=== PATIENT | female | born 1970 | race Caucasian/White ===

== ENCOUNTER 2020-11-11 16:10 | Emergency (ER) | payer BC ==
[2020-11-11 16:18] VITALS: TEMP 98.5
[2020-11-11] MEDS ORDERED: SODIUM CHLORIDE 0.9% 500 ML 500 ML IV STA (17:11)
[2020-11-11 17:32] LABS: Anisocytosis Slight; Basophils % (A) 1 %; Eosinophils # (A) 0.1 k/uL (0-0.7); Eosinophils % (A) 2 %; HCT 30.3 % (34.0-46.0); HGB 8.9 gm/dL (11.4-16.0); Hypochromasia Marked; Lymphocytes % (A) 24 %; MCH 19.6 pg (25.0-35.0); MCHC 29.4 g/dL (31.0-37.0); MCV 66.6 fL (80.0-100.0); Mean Platelet Volume 6.8; Microcytosis Marked; Monocytes # (A) 0.3 k/uL (0-1.0); Monocytes % (A) 8 %; Neutrophils # (A) 2.6 k/uL (1.3-7.7); Neutrophils % (A) 62 %; Platelet Count 207 k/uL (150-450); Poikilocytosis Slight; RBC 4.55 m/uL (3.80-5.40); WBC 4.2 k/uL (3.8-10.6)
[2020-11-11 17:43] LABS: ALT 13 U/L (4-34); AST 21 U/L (14-36); African American GFR (CKD) >90 (>60 ml/min/1.73 sqM); Alkaline Phosphatase 61 U/L (38-126); Anion Gap 6 mmol/L; Blood Urea Nitrogen 9 mg/dL (7-17); Carbon Dioxide 24 mmol/L (22-30); Chloride 107 mmol/L (98-107); Glucose 76 mg/dL (74-99); Non-African American GFR(CKD) >90 (>60 ml/min/1.73 sqM); Potassium 4.2 mmol/L (3.5-5.1); Sodium 137 mmol/L (137-145); Total Bilirubin 0.2 mg/dL (0.2-1.3); Total Protein 6.7 g/dL (6.3-8.2)
[2020-11-11 17:57] LABS: Partial Thromboplastin Time 21.6 sec (22.0-30.0); Prothrombin Time 10.8 sec (9.0-12.0)
--- NOTE | 2020-11-11 17:58 | ED ---
Recheck HPI - General Chief Complaint: Recheck/Abnormal Lab/Rx Stated Complaint: Sent by pcp Time Seen by Provider: 11/11/20 16:54 Source: patient Mode of arrival: ambulatory Limitations: no limitations - History of Present Illness Initial Comments: Patient is a 50-year-old female, with history of anemia, presenting to the emergency department from her PCPs office for possibly low hemoglobin. Patient states over the last few weeks she has been having her hemoglobin level checked by her PCP, they state has been dropping a little bit each time and she continues to feel worse so PCP decided to send her into the ER. Hemoglobin was 8.22 weeks ago, then rechecked last week it was 7.9. Pt just started ferrous 4 days ago. Patient is complaining of shortness of breath with exertion, fatigue, leg cramps. She states she does take an iron supplement. She denies any blood thinners, she denies any bleeding since his hematochezia, hematuria. He denies any nausea or vomiting. She states she has been borderline anemic for most of her life. She does admit to gastric bypass surgery, no other abdominal surgeries. She denies any chest pain or shortness of breath at rest, no fever or chills. She denies any abdominal pain. Patient has no further complaints at this time. Upon arrival to the ER, her vitals are stable. - Related Data Home Medications Medication Instructions Recorded Confirmed Cholecalciferol [Vitamin D3 (25 25 mcg PO DAILY 11/11/20 11/11/20 Mcg = 1000 Iu)] FLUoxetine HCL [PROzac] 20 mg PO DAILY 11/11/20 11/11/20 Ferrous Sulfate [Feosol] 325 mg PO DAILY 11/11/20 11/11/20 Lansoprazole [Prevacid] 30 mg PO DAILY 11/11/20 11/11/20 Multivitamins, Thera [Multivitamin 1 tab PO DAILY 11/11/20 11/11/20 (formulary)] Allergies Allergy/AdvReac Type Severity Reaction Status Date / Time Penicillins Allergy Rash/Hives Verified 11/11/20 18:07 Review of Systems ROS Statement: Those systems with pertinent positive or pertinent negative responses have been documented in the HPI. ROS Other: All systems not noted in ROS Statement are negative. Past Medical History Additional Past Medical History / Comment(s): Anemia History of Any Multi-Drug Resistant Organisms: None Reported Past Surgical History: Adenoidectomy, Ear Surgery Additional Past Surgical History / Comment(s): D& C, Gastric sleeve Past Psychological History: No Psychological Hx Reported Smoking Status: Never smoker Past Alcohol Use History: Occasional Past Drug Use History: None Reported General Exam - General Exam Comments Initial Comments: GENERAL: Patient is well-developed and well-nourished. Patient is nontoxic and in no acute distress. HEAD: Atraumatic, normocephalic. EYES: Pupils equal round and reactive to light, extraocular movements intact, sclera anicteric, conjunctiva are normal. Eyelids were unremarkable. ENT: TMs normal, nares patent, oropharynx clear without exudates. Moist mucous membranes. NECK: Normal range of motion, supple without lymphadenopathy or JVD. LUNGS: Unlabored respirations. Breath sounds clear to auscultation bilaterally and equal. No wheezes rales or rhonchi. HEART: Regular rate and rhythm without murmurs, rubs or gallops. ABDOMEN: Soft, nontender, normoactive bowel sounds. No guarding, no rebound. No masses appreciated. : Deferred MUSCULOSKELETAL: Normal extremities with adequate strength and normal range of motion, no pitting or edema. No clubbing or cyanosis. NEUROLOGICAL: Patient is alert and oriented x 3. Motor and sensory are also intact. Cranial nerves II through XII grossly intact. Symmetrical smile. Normal speech, normal gait. PSYCH: Normal mood, normal affect. SKIN: Warm, Dry, normal turgor, no rashes or lesions noted. Limitations: no limitations Course Vital Signs 11/11/20 11/11/20 16:15 18:02 Temperature 98.5 F Pulse Rate 80 76 Respiratory 20 16 Rate Blood Pressure 114/58 102/79 O2 Sat by Pulse 99 Oximetry Medical Decision Making - Medical Decision Making Patient is a 50-year-old female with history anemia, presenting from her PCPs office for possibly low hemoglobin. They have been checking her hemoglobin level over the past few weeks and has been dropping slightly. She denies any bleeding. She is complaining of fatigue, shortness of breath with exertion, leg cramping. Her exam is unremarkable, no acute findings. Her vital signs are stable. Last hemoglobins were 8.2 and then 7.9 last week. Today is 8.9. Rest of the labs are stable including normal troponin. Chest x-ray and EKG are also normal. Discussed these findings with the patient. I did recommend following up with a ortho nurse, she does have an appointment with one next week. I recommend she continue with her prescribed medications, follow up with her PCP. Patient is stable for discharge. Patient is in agreement with this plan of care. Return parameters were discussed with the patient and they verbalized understanding. Case discussed with Dr. Dyer. - Lab Data Result diagrams: 11/11/20 17:21 11/11/20 17:21 Lab Results 11/11/20 11/11/20 11/11/20 Range/Units 17:04 17:21 17:21 WBC 4.2 (3.8-10.6) k/uL RBC 4.55 (3.80-5.40) m/uL Hgb 8.9 L (11.4-16.0) gm/dL Hct 30.3 L (34.0-46.0) % MCV 66.6 L (80.0-100.0) fL MCH 19.6 L (25.0-35.0) pg MCHC 29.4 L (31.0-37.0) g/dL RDW 19.0 H (11.5-15.5) % Plt Count 207 (150-450) k/uL MPV 6.8 Neutrophils % 62 % Lymphocytes % 24 % Monocytes % 8 % Eosinophils % 2 % Basophils % 1 % Neutrophils # 2.6 (1.3-7.7) k/uL Lymphocytes # 1.0 (1.0-4.8) k/uL Monocytes # 0.3 (0-1.0) k/uL Eosinophils # 0.1 (0-0.7) k/uL Basophils # 0.0 (0-0.2) k/uL Hypochromasia Marked Poikilocytosis Slight Anisocytosis Slight Microcytosis Marked PT 10.8 (9.0-12.0) sec INR 1.0 (<1.2) APTT 21.6 L (22.0-30.0) sec Sodium (137-145) mmol/L Potassium (3.5-5.1) mmol/L Chloride (98-107) mmol/L Carbon Dioxide (22-30) mmol/L Anion Gap mmol/L BUN (7-17) mg/dL Creatinine (0.52-1.04) mg/dL Est GFR (CKD-EPI)AfAm (>60 ml/min/1.73 sqM) Est GFR (CKD-EPI)NonAf (>60 ml/min/1.73 sqM) Glucose (74-99) mg/dL Calcium (8.4-10.2) mg/dL Total Bilirubin (0.2-1.3) mg/dL AST (14-36) U/L ALT (4-34) U/L Alkaline Phosphatase (38-126) U/L Troponin I (0.000-0.034) ng/mL Total Protein (6.3-8.2) g/dL Albumin (3.5-5.0) g/dL TSH (0.465-4.680) mIU/L Blood Type O Negative Blood Type Confirm Blood Type Recheck Bld Type Recheck Status Antibody Screen NEGATIVE Spec Expiration Date 11/11/20 11/11/20 11/11/20 Range/Units 17:21 17:21 17:21 WBC (3.8-10.6) k/uL RBC (3.80-5.40) m/uL Hgb (11.4-16.0) gm/dL Hct (34.0-46.0) % MCV (80.0-100.0) fL MCH (25.0-35.0) pg MCHC (31.0-37.0) g/dL RDW (11.5-15.5) % Plt Count (150-450) k/uL MPV Neutrophils % % Lymphocytes % % Monocytes % % Eosinophils % % Basophils % % Neutrophils # (1.3-7.7) k/uL Lymphocytes # (1.0-4.8) k/uL Monocytes # (0-1.0) k/uL Eosinophils # (0-0.7) k/uL Basophils # (0-0.2) k/uL Hypochromasia Poikilocytosis Anisocytosis Microcytosis PT (9.0-12.0) sec INR (<1.2) APTT (22.0-30.0) sec Sodium 137 (137-145) mmol/L Potassium 4.2 (3.5-5.1) mmol/L Chloride 107 (98-107) mmol/L Carbon Dioxide 24 (22-30) mmol/L Anion Gap 6 mmol/L BUN 9 (7-17) mg/dL Creatinine 0.55 (0.52-1.04) mg/dL Est GFR (CKD-EPI)AfAm >90 (>60 ml/min/1.73 sqM) Est GFR (CKD-EPI)NonAf >90 (>60 ml/min/1.73 sqM) Glucose 76 (74-99) mg/dL Calcium 9.0 (8.4-10.2) mg/dL Total Bilirubin 0.2 (0.2-1.3) mg/dL AST 21 (14-36) U/L ALT 13 (4-34) U/L Alkaline Phosphatase 61 (38-126) U/L Troponin I <0.012 (0.000-0.034) ng/mL Total Protein 6.7 (6.3-8.2) g/dL Albumin 4.0 (3.5-5.0) g/dL TSH 1.210 (0.465-4.680) mIU/L Blood Type Blood Type Confirm Blood Type Recheck No Previous Record Bld Type Recheck Status CABO Indicated Antibody Screen Spec Expiration Date 11/14/2020 - 232011/11/20 Range/Units 17:36 WBC (3.8-10.6) k/uL RBC (3.80-5.40) m/uL Hgb (11.4-16.0) gm/dL Hct (34.0-46.0) % MCV (80.0-100.0) fL MCH (25.0-35.0) pg MCHC (31.0-37.0) g/dL RDW (11.5-15.5) % Plt Count (150-450) k/uL MPV Neutrophils % % Lymphocytes % % Monocytes % % Eosinophils % % Basophils % % Neutrophils # (1.3-7.7) k/uL Lymphocytes # (1.0-4.8) k/uL Monocytes # (0-1.0) k/uL Eosinophils # (0-0.7) k/uL Basophils # (0-0.2) k/uL Hypochromasia Poikilocytosis Anisocytosis Microcytosis PT (9.0-12.0) sec INR (<1.2) APTT (22.0-30.0) sec Sodium (137-145) mmol/L Potassium (3.5-5.1) mmol/L Chloride (98-107) mmol/L Carbon Dioxide (22-30) mmol/L Anion Gap mmol/L BUN (7-17) mg/dL Creatinine (0.52-1.04) mg/dL Est GFR (CKD-EPI)AfAm (>60 ml/min/1.73 sqM) Est GFR (CKD-EPI)NonAf (>60 ml/min/1.73 sqM) Glucose (74-99) mg/dL Calcium (8.4-10.2) mg/dL Total Bilirubin (0.2-1.3) mg/dL AST (14-36) U/L ALT (4-34) U/L Alkaline Phosphatase (38-126) U/L Troponin I (0.000-0.034) ng/mL Total Protein (6.3-8.2) g/dL Albumin (3.5-5.0) g/dL TSH (0.465-4.680) mIU/L Blood Type Blood Type Confirm O Negative Blood Type Recheck Bld Type Recheck Status Antibody Screen Spec Expiration Date - EKG Data EKG Comments: Normal sinus rhythm, low voltage QRS, no signs of an acute process. Ventricular rate 85, MI interval 146, QT 372. Disposition Clinical Impression: Chronic anemia, Fatigue Disposition: HOME SELF-CARE Condition: Stable Instructions (If sedation given, give patient instructions): Anemia (ED) Additional Instructions: Please return to the Emergency Department if symptoms worsen or any other concerns. Please follow up with your PCP, ortho nurse as discussed. Is patient prescribed a controlled substance at d/c from ED?: No Referrals: Boby Soto DO [Primary Care Provider] - 1-2 days
[2020-11-11 18:03] VITALS: BP 102/79; PULSE 76; RESP 16
--- NOTE | 2020-11-11 18:30 | XR ---
EXAMINATION TYPE: XR chest 2V DATE OF EXAM: 11/11/2020 COMPARISON: NONE HISTORY: Shortness of breath. TECHNIQUE: Frontal and lateral views of the chest are obtained. FINDINGS: There is mild bibasilar hazy opacities. No pleural effusion, or pneumothorax seen. The ca rdiac silhouette size is within normal limits. The osseous structures are intact. IMPRESSION: Mild bibasilar atelectasis. Superimposed infiltrates are better excluded clinically.
[2020-11-12 05:50] LABS: % Iron Saturation 2.78 (12.00-45.00); Iron 12 ug/dL (50-170); Total Iron Binding Capacity 431 ug/dL (228-460)
== END 2020-11-11 19:19 | disposition home or self-care (01) ==
LOC: EC 16:10
DX: D64.9 Anemia, unspecified (principal); R53.83 Other fatigue
CPT/HCPCS: 36415; 71046; 80053; 83540; 83550; 84443; 84484; 85025; 85610; 85730; 86850; 86900; 86901; 93005; 96376; 99284